=== PATIENT | male | born 1985 | race Caucasian/White ===

== ENCOUNTER 2018-10-24 08:40 | Day surgery (SDC) | payer OTHER ==
[2018-10-24] VITALS (14 sets, daily range): BP systolic 114–149; BP diastolic 54–89; PULSE 72–98; RESP 9–19; Ht 190.5 cm; Wt 88.9 kg
[~2018-10-24] VITALS: Ht 190.5 cm; Wt 88.9 kg
[~2018-10-24 08:40] MED LIST: SOD CHLORIDE 0.9% 1,000 ML IV SCH
[2018-10-24] MEDS ORDERED: MULTI PO (09:05)
[2018-10-24] MEDS ORDERED: BUPIVACAINE 0.25% (MPF) 30 ML INJ ONE (11:17)
--- NOTE | 2018-10-24 11:19 | PREAC ---
Date/Time of Note Date/Time of Note DATE: 10/24/18 TIME: 11:18 Anesthesia Eval and Record Evaluation Time Pre-Procedure Interview DATE: 10/24/18 TIME: 11:18 Age 33 Sex male NPO: 8 hrs Preoperative diagnosis left back and left thigh masses Planned procedure excision of left back and left thigh masses Past Medical History Past Medical History: None Surgery & Anesthesia Issues No known issue Meds Anticoagulation: No Beta Dave within 24 hr: No Reason Beta Dave not given: Pt. not on B-Dave Reported Medications Multivitamins* (Theragran*) 1 Tab Tab, 1 TAB PO DAILY, TAB 10/24/18 Current Medications Sodium Chloride 1,000 ml @ 75 mls/hr [id number] IV Last administered on 10/24/18at 06:00; Admin Dose 75 MLS/HR; Start 10/24/18 at 06:00; Stop 10/24/18 at 19:19 Meds reviewed: Yes Allergies Coded Allergies: Penicillins (Verified Allergy, Unknown, 10/24/18) Allergies Reviewed: Yes Labs/Studies Labs Reviewed: Reviewed by anesthesiologist test: N/A Pre-procedure Exam Last vitals Vital Signs Date Temp Pulse Resp B/P (MAP) Pulse Ox O2 O2 Flow FiO2 Time Delivery Rate 10/24/18 98.5 80 16 132/89 100 Room Air 09:24 (103) Airway: Adequate mouth opening, Adequate thyromental dist Mallampati: Mallampati I Teeth: Normal Lung: Normal Heart: Normal ASA Physical Status ASA physical status: 1 Emergency: None Planned Anesthetic General/MAC: LMA Planned Pain Management Parenteral pain med Pre-operative Attestations Prior to commencing anesthesia and surgery, the patient was re-evaluated, there was verification of: *The patient's identity *The results of appropriate recent lab work and preoperative vital signs *The above evaluation not changing prior to induction *Anesthetic plan, risk benefits, alternative and complications discussed with patient/family; questions answered; patient/family understands, accepts and wishes to proceed. CARMEN DUNLAP Oct 24, 2018 11:19
[2018-10-24] MEDS ORDERED: PROPOFOL 20 ML ONE (11:50)
[2018-10-24] MEDS ORDERED: LIDOCAINE 2% (SDV) 5 ML INJ ONE (11:50)
[2018-10-24] MEDS ORDERED: CLINDAMYCIN 900 MG/D5W (PMX) 50 ML IVPB ONE (11:50)
[2018-10-24] MEDS ORDERED: DEXAMETHASONE 4 MG/ML 5 ML INJ ONE (11:51)
[2018-10-24] MEDS ORDERED: ONDANSETRON 4 MG INJ ONE (11:51)
--- NOTE | 2018-10-24 12:33 | PAC ---
Date/Time of Note Date/Time of Note DATE: 10/24/18 TIME: 12:33 Post-Anesthesia Notes Post-Anesthesia Note Last documented vital signs Vital Signs Date Temp Pulse Resp B/P (MAP) Pulse Ox O2 O2 Flow FiO2 Time Delivery Rate 10/24/18 98.5 80 16 132/89 100 Room Air 1233 (103) Activity: WNL Respiratory function: WNL Cardiovascular function: WNL Mental status: Baseline Pain reasonably controlled: Yes Hydration appropriate: Yes Nausea/Vomiting absent: Yes CARMEN DNULAP Oct 24, 2018 12:33
--- NOTE | 2018-10-24 12:42 | OPR ---
Date/Time of Note Date/Time of Note DATE: 10/24/18 TIME: 12:37 Operative Report Procedure Date: Oct 24, 2018 Preoperative Diagnosis back mass x 2 and left leg mass Postoperative Diagnosis same Operation/Procedure Performed 1. excision of left back mass 7 cm mass 7 cm incision 2. localized adjacent tissue transfer with the use of skin flaps 14 sq cm defect of left back 3. excision of right back mass 5 cm mass 5 cm incision 4. localized adjacent tissue transfer with the use of skin flaps 10 sq cm defect of right back 5. excision of left leg mass 6 cm mass 6 cm incision 6. localized adjacent tissue transfer with the use of skin flaps 12 sq cm defect 7. therapeutic injection of subcutaneous local anesthesia Surgeon see signature line Hand Picker none Anesthesia Type: general Estimated Blood Loss: 0 - 10 ml's Transfusion none Specimen left back mass right back mass left leg mass Grafts/Implants none Complications none Pt Condition Post Procedure: stable Indications This is a 33-year-old male with multiple masses on his body. He has 2 back masses and one left leg mass. He requires surgical excision of the masses. Risks alternatives benefits and personally discussed the patient. Patient expressed understanding and consents to the operation. Procedure Description Patient is taken to the OR and prepped and draped in usual sterile fashion. Surgical time was performed. IV antibiotics given. Elliptical incision was made over the left back mass with a 15 blade. Dissection with cautery skin onto the mass and the mass was circumferentially excised including the capsule of the mass. Good hemostasis status. Due to tissue defect localization to his transfe r with these of skin flaps was performed. Multilayer closed with interrupted 2- 0 Vicryl and skin leighton. Attention was then paid to the right back mass. Elliptical incision made over the back mass with a 15 blade. Dissection with cautery skin onto the mass and the mass was circumferentially excised along with the capsule of the mass. Good hemostasis status. Due to the tissue defect localized adjacent to his transfer with these of skin flaps was performed. Multilayer closed with interrupted 2-0 Vicryl and skin leighton. Attention was then paid to the left leg mass. Elliptical incisions made over the left leg mass with a 15 blade. Dissection with cautery skin onto the mass and the mass was circumferentially excised. Good hemostasis status. Due to tissue defect localization just transfer with these of skin flaps was performed. Multilayer closed with interrupted 2-0 Vicryl and interrupted 3-0 Vicryl and skin leighton. Therapeutic subcu local anesthesia was injected to all incision sites. Dry dressings were applied. Jessica COTTON Oct 24, 2018 12:42
[2018-10-24] MEDS ORDERED: DIPHENHYDRAMINE 50 MG INJ IV PRN (13:00)
[2018-10-24] MEDS ORDERED: FENTAnyl 50 MCG/ML VIAL IV PRN ×3 (13:00)
[2018-10-24] MEDS ORDERED: METOCLOPRAMIDE 10 MG INJ IV PRN (13:00)
[2018-10-24] MEDS ORDERED: hydrALAzine 20 MG INJ IV PRN (13:00)
[2018-10-24] MEDS ORDERED: ALBUTEROL 0.083% (NEB) 2.5 MG/3 ML AMP HHN PRN (13:00)
[2018-10-24] MEDS ORDERED: ONDANSETRON 4 MG INJ IV PRN (13:00)
[2018-10-24] MEDS ORDERED: MEPERIDINE 25 MG INJ IV PRN (13:00)
[2018-10-24] MEDS ORDERED: KETOROLAC 30 MG INJ IV PRN (13:00)
[2018-10-24] MEDS ORDERED: OXYCODONE/ACETAMINOPHEN (5/325) TAB PO PRN ×2 (13:00)
[2018-10-24] MEDS ORDERED: LABETALOL HCL 20MG INJ IV PRN (13:00)
[2018-10-24] MEDS ORDERED: HYDROCODONE/APAP (5/325) TAB PO ONE (13:00)
[2018-10-24] MEDS ORDERED: EPHEDrine 25 MG/5 ML SYG IV PRN (13:00)
== END 2018-10-24 14:24 | disposition home or self-care (01) ==
LOC: SDS 08:40
PROVIDERS: ATTEND Surgery
DX: L72.9 Follicular cyst of the skin and subcutaneous tissue, unspecified (principal)
CPT/HCPCS: 14000; 14020; 88307; J1100; J2405; J3010